=== PATIENT | female | born 1995 | race American Indian/Alaskan Native ===

== ENCOUNTER 2018-11-03 04:40 | Inpatient (IN) | payer MEDICAID, OTHER ==
[2018-11-03] MEDS ORDERED: BRETHINE SUB-Q PRN ×2 (05:19→08:32)
[2018-11-03] MEDS ORDERED: AMPICILLIN/NS 2 GM/100 ML 2 GM/100 ML BAG IV ONE (05:19)
[2018-11-03] MEDS ORDERED: MINERAL OIL PO PRN ×2 (05:19→22:00)
[2018-11-03] MEDS ORDERED: STADOL IV PRN (05:19)
[2018-11-03] MEDS ORDERED: BRETHINE IVP PRN ×2 (05:19→08:32)
[2018-11-03 06:00] LABS: Hematocrit 35.2 % (30.3-42.9); Hemoglobin 11.8 gm/dl (10.1-14.3); Mean Corpuscular HGB Conc 33 % (30-34); Mean Corpuscular Volume 88 fl (79-97); Platelet Count 135 K/mm3 (140-440); Red Blood Count 3.99 M/mm3 (3.65-5.03); Red Cell Distribution Width 13.7 % (13.2-15.2)
[2018-11-03] MEDS ORDERED: LACTATED RINGERS 1,000 ML IV SCH ×2 (06:00→09:00)
[2018-11-03] MEDS: SUBLIMAZE IV PRN ×3 (06:20→12:16)
[2018-11-03] MEDS: PITOCin/NS 20 UNIT/1000ML DRIP 20 UNITS/1,000 ML BAG IV SCH ×2 (06:40→13:34)
--- NOTE | 2018-11-03 08:31 | History and Physical Report ---
History of Present Illness Date of examination: 11/03/18 Date of admission: 11/03/18 05:42 Chief complaint: Labor History of present illness: Pt is a 23yo BF EDC 10/27/18; EGA 41 0/7 weeks presents to L&D complaining of RUC's q 3-4 mins. She received care at [facility] since 22 weeks and course was unremarkable. records are available and GBS is Positive. Past History Past Medical History: no pertinent history Past Surgical History: no surgical history Family/Genetic History: none Social history: no significant social history, single - Obstetrical History Expected Date of Delivery: 10/27/18 Actual Gestation: 41 Week(s) 1 Day(s) : 1 Medications and Allergies Allergies Allergy/AdvReac Type Severity Reaction Status Date / Time No Known Allergies Allergy Verified 11/03/18 05:23 Home Medications Medication Instructions Recorded Confirmed Last Taken Type Ferrous Sulfate [Feosol 325 MG tab] 1 tab PO BID 11/03/18 11/03/18 11/02/18 History Pnv,Calcium 72/Iron/Folic Acid 1 each PO QDAY 11/03/18 11/03/18 11/02/18 History [Preplus Ca-Fe 27 mg-FA 1 mg Tb] Active Meds: Active Medications Butorphanol Tartrate (Stadol) 2 mg IV Q2H PRN PRN Reason: Pain , Severe (7-10) Last Admin: 11/03/18 08:06 Dose: 2 mg Documented by: Ephedrine Sulfate (Ephedrine Sulfate) 10 mg IV Q2M PRN PRN Reason: Hypotension Fentanyl (Sublimaze) 100 mcg IV Q2H PRN PRN Reason: Labor Pain Last Admin: 11/03/18 06:20 Dose: 100 mcg Documented by: Oxytocin/Sodium Chloride (Pitocin/Ns 20 Unit/1000ml Drip) 20 units in 1,000 mls @ 125 mls/hr IV DIRECT ELSA Last Admin: 11/03/18 06:40 Dose: 125 mls/hr Documented by: Lactated Ringer's (Lactated Ringers) 1,000 mls @ 125 mls/hr IV DIRECT ELSA Last Admin: 11/03/18 06:24 Dose: 125 mls/hr Documented by: Ampicillin Sodium (Ampicillin/Ns 1 Gm/50 Ml) 1 gm in 50 mls @ 100 mls/hr IV Q4HR ELSA; Protocol Mineral Oil (Mineral Oil) 30 ml PO QHS PRN PRN Reason: Constipation Terbutaline Sulfate (Brethine) 0.25 mg SUB-Q ONCE PRN PRN Reason: Hyperstimulation/Hypertonicity Terbutaline Sulfate (Brethine) 0.25 mg IVP ONCE PRN PRN Reason: Hyperstimulation/Hypertonicity Review of Systems All systems: negative - Vital Signs Vital signs: Vital Signs Pulse BP Pulse Ox 84 145/92 98 11/03/18 04:49 11/03/18 04:49 11/03/18 04:49 Temp Pulse Resp BP Pulse Ox 96.8 F L 91 H 18 134/91 100 11/03/18 06:36 11/03/18 08:08 11/03/18 07:18 11/03/18 08:08 11/03/18 05:24 - Physical Exam Breasts: Positive: deferred Cardiovascular: Regular rate Lungs: Positive: Clear to auscultation Abdomen: Positive: normal appearance Genitourinary (Female): Positive: normal external genitalia Vagina: Positive: normal moisture Uterus: Positive: enlarged Extremities: Positive: normal - Obstetrical FHR: category 1 Uterine Contraction Monitor Mode: External Cervical Dilatation: 8 Cervical Effacement Percentage: 100 station: 0 Uterine Contraction Pattern: Regular Uterine Tone Measurement Phase: Contraction Uterine Contraction Intensity: Strong/Firm Results Result Diagrams: 11/04/18 01:58 11/03/18 08:58 Abnormal lab results 11/03/18 Range/Units 05:35 Plt Count 135 L (140-440) K/mm3 All other labs normal. Assessment and Plan - Patient Problems (1) 41 weeks gestation of Onset Date: 11/03/18 Current Visit: Yes Status: Resolved Plan to address problem: A: IUP @ 41 0/7 weeks in labor +GBS P: Admit to L&D for expectant vaginal delivery IV Ampicillin (2) GBS (group B Streptococcus carrier), +RV culture, currently Onset Date: 11/03/18 Current Visit: Yes Status: Resolved
[2018-11-03] MEDS ORDERED: ZOFRAN IV PRN ×2 (08:32→14:00)
[2018-11-03] MEDS ORDERED: PITOCin/NS 20 UNIT/1000ML DRIP 20 UNITS/1,000 ML BAG IV SCH ×2 (09:00→14:00)
[2018-11-03] MEDS ORDERED: PITOCin/NS 30 UNIT/500ML 30 UNITS/500 ML BAG IV SCH ×2 (09:00→10:00)
[2018-11-03] MEDS ORDERED: XYLOCAINE 2% INFILTRATI ONE (09:30)
[2018-11-03] MEDS ORDERED: AMPICILLIN/NS 1 GM/50 ML 1 GM/50 ML BAG IV SCH (09:30)
[2018-11-03 09:46] LABS: Alanine Aminotransferase 9 units/L (7-56); Uric Acid 4.3 mg/dL (3.5-7.6)
[2018-11-03 11:04] LABS: Bilirubin,Urine NEG (Negative); Blood,Urine SM (Negative); Color,Urine Yellow (Yellow); Mucus,Urine FEW /HPF; Urobilinogen,Urine < 2.0 mg/dL (<2.0)
[2018-11-03] MEDS ORDERED: XYLOCAINE 2% INFILTRATI NR (13:00)
--- NOTE | 2018-11-03 13:59 | Procedure Note ---
OB Delivery Note - Delivery Date of Delivery: 11/03/18 Surgeon: YASSINE HERNÁNDEZ Estimated blood loss: 300cc - Vaginal Delivery presentation: vertex Delivery position: OA Intrapartum events: none Delivery induction: none Delivery augmentation: rupture of membranes, pitocin Delivery monitor: external FHT, external uterine Route of delivery: Delivery placenta: spontaneous Delivery cord: nuchal cord (x1), 3 umbilical vessels Episiotomy: none Delivery laceration: 1st degree (perineal) Delivery repair: vicryl Anesthesia: intravenous Delivery comments: delivered OA and placed on Mom's chest for [id number] bonding and delayed cord clamping, cut by Grandma - A at 1 minute: 8 at 5 minutes: 9 Gender: Female (3164gms)
[2018-11-03] MEDS ORDERED: PHENERGAN PO PRN (14:00)
[2018-11-03] MEDS ORDERED: TUCKS PAD TP PRN (14:00)
[2018-11-03] MEDS ORDERED: DULCOLAX PR PRN (14:00)
[2018-11-03] MEDS ORDERED: PHENERGAN PR PRN (14:00)
[2018-11-03] MEDS ORDERED: LANSINOH TP PRN (14:00)
[2018-11-03] MEDS ORDERED: BENADRYL PO PRN (14:00)
[2018-11-03] MEDS ORDERED: IBUPROFEN PO SCH (14:00)
[2018-11-03] MEDS ORDERED: SODIUM CHLORIDE FLUSH SYRINGE 10 ML IV NR (14:00)
[2018-11-03] MEDS ORDERED: MILK OF MAGNESIA PO PRN (14:00)
[2018-11-03] MEDS: NORCO 5/325 PO PRN (15:34)
[2018-11-03] MEDS: TYLENOL PO PRN (18:15)
[2018-11-04 03:03] LABS: Hematocrit 25.5 % (30.3-42.9); Hemoglobin 8.6 gm/dl (10.1-14.3)
[2018-11-04] MEDS: FEOSOL PO SCH ×3 (04:42→22:01)
[2018-11-04] MEDS: COLACE PO SCH ×3 (04:42→22:01)
[2018-11-04] MEDS: NORCO 5/325 PO PRN ×3 (04:42→19:52)
[2018-11-04] MEDS: PRENATAL VITAMIN PO SCH (09:04)
--- NOTE | 2018-11-04 09:49 | Progress Note ---
Assessment and Plan - Patient Problems (1) 41 weeks gestation of Onset Date: 11/03/18 Current Visit: Yes Status: Resolved (2) GBS (group B Streptococcus carrier), +RV culture, currently Onset Date: 11/03/18 Current Visit: Yes Status: Resolved (3) (normal spontaneous vaginal delivery) Onset Date: 11/04/18 Current Visit: Yes Status: Resolved Plan to address problem: A: S/P - PPD #1 Doing well Asymptomatic anemia - stable P: May go home tomorrow. (4) Acute blood loss anemia Onset Date: 11/04/18 Current Visit: Yes Status: Resolved Subjective - Subjective Date of service: 11/04/18 Principal diagnosis: s/p - PPD #1 Interval history: Pt is feeling well without complaints. Bleeding improved. Patient reports: appetite normal, voiding normally, pain well controlled, flatus, ambulating normally, no dizzy ambulation, no nauseated [place]: doing well, nursing well Objective - Vital Signs Latest vital signs: Vital Signs Temp Pulse Resp BP BP Pulse Ox 11/04/18 09:04 17 11/04/18 08:00 98.2 F 99 H 20 127/70 11/04/18 04:42 18 11/03/18 23:48 96 H 98 11/03/18 23:47 97.8 F 85 17 119/68 98 11/03/18 20:01 109 H 99 11/03/18 18:15 17 11/03/18 16:53 98.1 F 98 H 18 126/85 98 11/03/18 15:34 17 11/03/18 14:20 98.2 F 11/03/18 14:13 87 140/76 11/03/18 14:00 93 H 133/56 11/03/18 13:45 98.0 F 11/03/18 13:43 96 H 126/60 11/03/18 13:28 109 H 136/63 11/03/18 13:23 98 H 135/58 11/03/18 13:18 102 H 140/69 11/03/18 13:13 112 H 136/78 11/03/18 13:10 107 H 138/80 11/03/18 13:05 98.1 F 20 11/03/18 12:39 87 123/59 11/03/18 12:37 81 137/69 11/03/18 11:39 95 H 146/70 11/03/18 11:09 89 138/78 11/03/18 10:45 98.2 F 20 11/03/18 10:38 83 123/71 11/03/18 10:13 93 H 135/72 Intake and Output 11/03/18 11/04/18 11/04/18 22:59 06:59 14:59 Intake Total 320 Output Total 500 600 Balance -500 -280 Intake: Oral 320 Output: Urine 500 600 Void 500 600 Other: Total, Intake Amount 320 Total, Output Amount 500 600 # Voids Void 1 1 - Exam Abdomen: Present: normal appearance, soft Uterus: Present: normal, firm, fundal height below umbilicus Extremities: Present: normal - Labs Labs: Abnormal lab results 11/04/18 Range/Units 01:58 Hgb 8.6 L D (10.1-14.3) gm/dl Hct 25.5 L D (30.3-42.9) % Laboratory Tests 11/03/18 11/03/18 11/03/18 05:35 05:35 05:35 WBC 10.4 RBC 3.99 Hgb 11.8 Hct 35.2 MCV 88 MCH 30 MCHC 33 RDW 13.7 Plt Count 135 L Creatinine Estimated GFR Uric Acid AST ALT Lactate Dehydrogenase Urine Color Urine Turbidity Urine pH Ur Specific Dow Urine Protein Urine Glucose (UA) Urine Ketones Urine Blood Urine Nitrite Urine Bilirubin Urine Urobilinogen Ur Leukocyte Esterase Urine WBC (Auto) Urine RBC (Auto) U Epithel Cells (Auto) Urine Mucus RPR Nonreactive Hep Bs Antigen Rubella IgG Antibody Blood Type O POSITIVE Antibody Screen Negative 11/03/18 11/03/18 11/03/18 07:07 08:58 11:49 WBC RBC Hgb Hct MCV MCH MCHC RDW Plt Count Creatinine 0.6 L Estimated GFR > 60 Uric Acid 4.3 AST 21 ALT 9 Lactate Dehydrogenase 192 H Urine Color Yellow Urine Turbidity Clear Urine pH 5.0 Ur Specific Dow 1.025 Urine Protein 30 mg/dl Urine Glucose (UA) 50 Urine Ketones 80 Urine Blood Sm Urine Nitrite Neg Urine Bilirubin Neg Urine Urobilinogen < 2.0 Ur Leukocyte Esterase Neg Urine WBC (Auto) 2.0 Urine RBC (Auto) 5.0 U Epithel Cells (Auto) 6.0 Urine Mucus Few RPR Hep Bs Antigen Non-reactive Rubella IgG Antibody Blood Type Antibody Screen 11/03/18 11/04/18 11:49 01:58 WBC RBC Hgb 8.6 L D Hct 25.5 L D MCV MCH MCHC RDW Plt Count Creatinine Estimated GFR Uric Acid AST ALT Lactate Dehydrogenase Urine Color Urine Turbidity Urine pH Ur Specific Dow Urine Protein Urine Glucose (UA) Urine Ketones Urine Blood Urine Nitrite Urine Bilirubin Urine Urobilinogen Ur Leukocyte Esterase Urine WBC (Auto) Urine RBC (Auto) U Epithel Cells (Auto) Urine Mucus RPR Hep Bs Antigen Rubella IgG Antibody Immune Blood Type Antibody Screen
--- NOTE | 2018-11-04 10:24 | Discharge Summary ---
Providers - Providers Date of Admission: 11/03/18 05:42 Date of discharge: 11/05/18 Attending physician: YASSINE HERNÁNDEZ Primary care physician: YASSINE HERNÁNDEZ Hospitalization Reason for admission: active labor, IUP at term Delivery: Episiotomy: none Laceration: 1st degree Other procedures: none complications: none Discharge diagnosis: IUP at term delivered [place] baby: female Hospital course: Unremarkable. Condition at discharge: Good Disposition: DC-01 TO HOME OR SELFCARE - Discharge Diagnoses (1) 41 weeks gestation of Status: Resolved (2) GBS (group B Streptococcus carrier), +RV culture, currently Status: Resolved Plan - Discharge Medications Prescriptions: Ferrous Sulfate [Feosol 325 MG tab] 325 mg PO BID #60 tablet Ibuprofen [Motrin] 800 mg PO Q8HR PRN #30 tablet PRN Reason: Pain, Moderate (4-6) Vit-Fe Fumar-FA [ Vitamin] 1 each PO QDAY #30 tablet - Provider Discharge Summary Activity: routine, no sex for 6 weeks, no heavy lifting 4 weeks, no strenuous exercise Diet: routine Instructions: routine Additional instructions: [] Smoking cessation referral if applicable(refer to patient education folder for contact #) [] Refer to [facility]'s [facility] Booklet Call your doctor immediately for: * Fever > 100.5 * Heavy vaginal bleeding ( >1 pad per hour) * Severe persistent headache * Shortness of breath * Reddened, hot, painful area to leg or breast * Drainage or odor from incision. * Keep incision clean and dry at all times and follow doctor's instructions regarding bathing/showering - Follow up plan Follow up: YASSINE HERNÁNDEZ MD [Primary Care Provider] - 6 Weeks JOSIAH SNOW CNM [Advanced Practice Nurse] - 6 Weeks
[2018-11-04] MEDS ORDERED: BOOSTRIX IM ONE (14:00)
[2018-11-04] MEDS ORDERED: M-M-R II VACCINE SUB-Q ONE (14:00)
[2018-11-05] MEDS: NORCO 5/325 PO PRN (04:02)
[2018-11-05] MEDS: FEOSOL PO SCH (08:03)
[2018-11-05] MEDS: TYLENOL PO PRN (08:04)
[2018-11-05] MEDS: PRENATAL VITAMIN PO SCH (08:04)
[2018-11-05] MEDS: COLACE PO SCH (08:04)
[2018-11-05 16:56] VITALS: BP 130/72
== END 2018-11-05 18:10 | disposition home or self-care (01) | DRG 775 ==
LOC: TRG 04:40 → LD 05:42 → TRG 05:42 → OB 15:06
PROVIDERS: ADMIT Obstetrics & Gynecology; ATTEND Obstetrics & Gynecology
PROC: 10E0XZZ Delivery of Products of Conception, External Approach (ICD-10-PCS; principal; 2018-11-03)
PROC: 0HQ9XZZ Repair Perineum Skin, External Approach (ICD-10-PCS; 2018-11-03)
DX: O99.824 Streptococcus B carrier state complicating childbirth (principal); O69.81X0 Labor and delivery complicated by cord around neck, without compression, not applicable or unspecified; O70.0 First degree perineal laceration during delivery; O90.81 Anemia of the puerperium; D62 Acute posthemorrhagic anemia; Z3A.41 41 weeks gestation of pregnancy; Z37.0 Single live birth
CPT/HCPCS: 36415; 81001; 82565; 83615; 84450; 84460; 84550; 85014; 85018; 85027; 86592; 86706; 86762; 86850; 86900; 86901; 96374; 96376; G0378; A6250; J0290; J0595; J2590; J3010; J7120